=== PATIENT | female | born 1960 | race Caucasian/White ===

== ENCOUNTER 2018-04-05 16:20 | Inpatient (IN) | payer OTHER ==
[2018-04-05] MEDS ORDERED: AMPICILLIN/SULBACTAM 3 GM in NS 100 ML IV ONE (16:55)
--- NOTE | 2018-04-05 17:03 | EDPHY ---
H & P Stated Complaint: right 2nd digit cat bite on wednesday, seen at pcp yesterday, started abx Time Seen by Provider: 04/05/18 16:32 HPI/ROS: This patient has right index finger infection from a cat bite sustained on Wednesday, at 48 hr prior to arrival when she tried to free her cats foot was caught in a dog door. Her Cat got scared and bit the patient in the finger. She developed redness yesterday and was seen by her primary care physician who prescribed Augmentin antibiotic. However the patient did not get the antibiotic filled until today and did take the 1st dose until noon today. Due to significant worsening in the swelling with onset of purulent discharge and pain to 5/10 intensity with circumferential swelling the patient came in for further evaluation. A friend of hers drove her here by private vehicle. ROS: She reports some subjective low-grade fevers. No other constitutional symptoms except flu-like symptoms she describes as diffuse myalgias HEENT: No complaints Pulmonary: No complaints Cardiovascular: No complaints Neuro: She reports paresthesias to the affected finger that started today. Integumentary: No other injuries or complaints Musculoskeletal: She denies bony pain. She has difficulty straightening the affected finger due to pain. She reports that the pain for the finger radiates up her arm to her elbow region. GI: Last meal was lunch at noon. No nausea or vomiting. Source: Patient Exam Limitations: No limitations - Personal History Current Tetanus Diphtheria and Acellular Pertussis (TDAP): Yes Tetanus Vaccine Date: 04/04/18 - Medical/Surgical History Other PMH: basal cell ca removal on face, chronic migraines, chronic mold colonization/infection - Family History Significant Family History: No pertinent family hx - Social History Smoking Status: Never smoked Alcohol Use: Occasionally Drug Use: None - Physical Exam Exam: Physical Exam Vital signs are normal. General: Pleasant mildly obese 57-year-old female No acute distress Eyes: Pupils equal and react to light. Extraocular motions are intact. Lungs: No respiratory distress. Cardiac: Brisk capillary refill is intact throughout in the affected extremity. Musculoskeletal: Normal except for right index finger Right index finger: Patient has fusiform swelling of the index finger is held in partial flexion. There is erythema circumferentially to the finger that extends to the palmar aspect of the 2nd metacarpophalangeal joint. She has multiple puncture wounds are draining clear and purulent fluid. There is slight dusky appearance to the skin on the radial aspect overlying the PIP joint. Patient has increased pain with passive extension and tenderness on the palmar aspect of the finger to the metacarpophalangeal joint. Skin: Skin findings in finger as detailed above. No proximal streaking noted. Neuro: Alert and oriented x3 with no sensorimotor deficits. Constitutional: Initial Vital Signs Temperature (C) 37.3 C 04/05/18 16:28 Heart Rate 90 04/05/18 16:28 Respiratory Rate 18 04/05/18 16:28 Blood Pressure 155/100 H 04/05/18 16:28 O2 Sat (%) 95 04/05/18 16:28 O2 Delivery Mode Room Air Allergies/Adverse Reactions: acetaminophen [From Tylenol] Allergy (Verified 04/05/18 16:37) ciprofloxacin [From Cipro] Allergy (Verified 04/05/18 16:43) divalproex sodium [From Depakote] Allergy (Verified 04/05/18 16:43) ibuprofen Allergy (Verified 04/05/18 16:43) ofloxacin [From Floxin] Allergy (Verified 04/05/18 16:37) paraben Allergy (Verified 04/05/18 16:37) topiramate [From Topamax] Allergy (Verified 04/05/18 16:43) tyramine Allergy (Uncoded 04/05/18 16:37) Home Medications: Medication Instructions Recorded Augmentin 875 MG TAB (*) 04/05/18 Multiple Supplements 04/05/18 Nystatin 04/05/18 Sporanox 04/05/18 Medical Decision Making - Diagnostics Imaging Results: Imaging Impressions Finger X-Ray 04/05/18 16:54 Impression: 1. Moderate soft tissue swelling right second digit especially around the PIP joint without underlying osseous abnormality or foreign body. Three-view finger x-ray: Soft tissue swelling without bony abnormality by my interpretation ED Course/Re-evaluation: IV, I obtained wound culture from draining areas of the finger. Unasyn antibiotic IV Labs pending. Patient is placed in a wound dressing by our tech and nurse. The fingers elevated. Discussion: Patient with significant cellulitis complicating cat bite to finger concerning for potential early tenosynovitis. Patient without evidence of sepsis. While she has some paresthesias, still neurovascularly intact in the affected digit. Given the severity of her clinical findings she warrants admission for IV antibiotics and hand consult I spoke with Dr. Adriana Mary-hand surgeon on-call who recommends admission to the hospitalist with him as a consult. He would like to see how the finger responds to IV antibiotics prior to proceeding to surgery. I spoke with Dr. Ishmael López, hospitalist who accepts this patient for admission to [facility]-med surg Explained the patient that I do not want to perform a digital block at this time as a feel it is important to monitor her neurovascular status since Dr. Mary wants to 1st evaluate her response to IV antibiotics rather than proceeding directly to surgery. The patient declines any other analgesics this time concerned about potential side effects. - Data Points Laboratory Results: Laboratory Results 04/05/18 17:00 04/05/18 17:00 04/05/18 04/05/18 17:00 17:00 WBC 10.22 10^3/uL H 10^3/uL (3.80-9.50) RBC 5.10 10^6/uL 10^6/uL (4.18-5.33) Hgb 15.8 g/dL g/dL (12.6-16.3) Hct 46.8 % % (38.0-47.0) MCV 91.8 fL fL (81.5-99.8) MCH 31.0 pg pg (27.9-34.1) MCHC 33.8 g/dL g/dL (32.4-36.7) RDW 13.7 % % (11.5-15.2) Plt Count 165 10^3/uL 10^3/uL (150-400) MPV 11.5 fL fL (8.7-11.7) Neut % (Auto) 79.5 % H % (39.3-74.2) Lymph % (Auto) 11.0 % L % (15.0-45.0) [place] % (Auto) 8.4 % % (4.5-13.0) Eos % (Auto) 0.4 % L % (0.6-7.6) Baso % (Auto) 0.3 % % (0.3-1.7) Nucleat RBC Rel Count 0.0 % % (0.0-0.2) Absolute Neuts (auto) 8.13 10^3/uL H 10^3/uL (1.70-6.50) Absolute Lymphs (auto) 1.12 10^3/uL 10^3/uL (1.00-3.00) Absolute Monos (auto) 0.86 10^3/uL H 10^3/uL (0.30-0.80) Absolute Eos (auto) 0.04 10^3/uL 10^3/uL (0.03-0.40) Absolute Basos (auto) 0.03 10^3/uL 10^3/uL (0.02-0.10) Absolute Nucleated RBC 0.00 10^3/uL 10^3/uL (0-0.01) Immature Gran % 0.4 % % (0.0-1.1) Immature Gran # 0.04 10^3/uL 10^3/uL (0.00-0.10) Sodium 137 mEq/L mEq/L (135-145) Potassium 4.5 mEq/L mEq/L (3.5-5.2) Chloride 103 mEq/L mEq/L (97-110) Carbon Dioxide 21 mEq/l L mEq/l (22-31) Anion Gap 13 mEq/L mEq/L (8-16) BUN 14 mg/dL mg/dL (7-23) Creatinine 0.5 mg/dL L mg/dL (0.6-1.0) Estimated GFR > 60 Glucose 142 mg/dL H mg/dL (70-100) Calcium 9.4 mg/dL mg/dL (8.5-10.4) Medications Given: Discontinued Medications Ampicillin Sodium/Sulbactam Sodium (Unasyn) 3 gm IV EDNOW ONE PRN Reason: Protocol Stop: 04/05/18 17:15 Last Admin: 04/05/18 17:17 Dose: 3 gm Ampicillin Sodium/Sulbactam (Sodium 3 gm/ Sodium Chloride) 100 mls @ 200 mls/ hr IV EDNOW ONE PRN Reason: Protocol Stop: 04/05/18 17:24 Last Admin: 04/05/18 17:36 Dose: Not Given Departure - Departure Disposition: Home, Routine, Self-Care Clinical Impression: Cat bite of index finger Qualifiers: Encounter type: initial encounter Qualified Code(s): S61.258A - Open bite of other finger without damage to nail, initial encounter Cellulitis Qualifiers: Site of cellulitis: extremity Site of cellulitis of extremity: finger Laterality: right Qualified Code(s): L03.011 - Cellulitis of right finger Condition: Good Referrals: NONE *PRIMARY CARE P,. [Primary Care Provider] - As per Instructions Adriana Mary MD [Medical Doctor] - As per Instructions
[2018-04-05] MEDS ORDERED: AMPICILLIN/SULBACTAM 3 GM VIAL ONE (17:08)
[2018-04-05 17:09] LABS: PLATELET COUNT 165 10^3/uL (150-400)
[2018-04-05] MEDS ORDERED: AMPICILLIN/SULBACTAM 3 GM VIAL IV ONE (17:14)
[2018-04-05] MEDS ORDERED: oxyCODONE IR 5 MG TAB PO PRN (19:29)
[2018-04-05] MEDS ORDERED: NS 1,000 ML IV ONE (19:29)
[2018-04-05] MEDS ORDERED: PROMETHAZINE HCL 25 MG/ML INJ IVP PRN (19:29)
[2018-04-05] MEDS ORDERED: ONDANSETRON DISINTEGRATING 4 MG TAB PO PRN (19:29)
[2018-04-05] MEDS ORDERED: ONDANSETRON 4 MG/2 ML VIAL IVP PRN (19:29)
[2018-04-05] MEDS ORDERED: ACETAMINOPHEN 325 MG TAB PO PRN (19:29)
[2018-04-05] MEDS ORDERED: HYDROmorphone HCL/NS 0.5 MG/ML SYR IVP PRN (19:29)
[2018-04-05] MEDS ORDERED: LORazepam 0.5 MG TAB PO PRN (19:29)
--- NOTE | 2018-04-05 21:08 | GHP ---
[f rep st] HISTORY AND PHYSICAL DATE OF ADMISSION: 04/05/2018 CHIEF COMPLAINT: Finger pain and swelling. HISTORY OF PRESENT ILLNESS: This is a 57-year-old female with past medical history of chronic fatigu e, migraine, and "mold infection," who presents with pain and swelling in her right index finger foll owing a cat bite. The patient notes she was attempting to help her cat get out of the cat door, as blayne conteh was stuck when he bit her finger multiple times. She was seen by her primary care physician melisa y after that and given a prescription for amoxicillin. However, she did not fill it for 48 hours and only took the first dose today. She notes that over the last 48 hours the finger has become dark in places. The pain has increased, and there has been increasing purulent discharge. The redness and swelling have begun to extend into her hand. She denies fevers, though she states she has had some s ensation of being cold today. She has limited mobility in her affected finger. She does continue to have sensation, though has had some paresthesias there as well. PAST MEDICAL HISTORY: 1. Includes chronic fatigue. 2. Migraine. 3. "Mold infection" for which patient is on itraconazole and nystatin chronically. PAST SURGICAL HISTORY: Denies. FAMILY HISTORY: Noncontributory and reviewed. SOCIAL HISTORY: She is a nonsmoker. Drinks rarely. Denies drug use. REVIEW OF SYSTEMS: 10-point review of systems obtained and negative except as per HPI. MEDICATIONS: Include itraconazole, nystatin, and cholestyramine that she uses to treat her migraines . ALLERGIES: Multiple. Please see list for full details. PHYSICAL EXAMINATION: VITAL SIGNS: Blood pressure 145/91, heart rate 93, respiratory rate 16, O2 sa turations 93% on room air, and temperature is 37.3. GENERAL APPEARANCE: This is a slightly dishevel ed female. She is awake and alert. She is in no acute distress. EYES: Anicteric. HENT: Oropharynx clear. CARDIOVASCULAR: Regular rate and rhythm. No murmurs, rubs or gallops. PULMONA RY: Clear to auscultation bilaterally to anterior exam. ABDOMEN: Soft, nontender. Positive bowel sounds. EXTREMITIES: No clubbing, cyanosis, or edema. Her right 2nd digit is noted to be erythemat ous with areas of duskiness over the PIP joint. Range of motion is decreased. Erythema extends prox imally to the wrist. SKIN: Warm, dry, well perfused, other than as per above. NEURO/PSYCHIATRIC: Oriented and appropriate. CLINICAL DATA: A white blood cell count of 10.2. Chemistry relatively unremarkable, otherwise. Glu cose is 142. Finger x-ray personally reviewed and interpreted. There is no foreign body noted. There is moderate soft tissue swelling around the PIP joint. ASSESSMENT AND PLAN: This is a 57-year-old female presenting with a finger cellulitis related to a c at bite. 1. Cellulitis, again in the setting of cat bite. It is concerning in that there is some duskiness t o the skin, concerning for some tissue necrosis. She has been started on Unasyn, which will be niles nued. Hand has been consulted, specifically Dr. Mary. Unclear at this point whether or not she will require some surgical debridement. We will continue Unasyn for the time being, as well as elevation . The patient states she has had bad reactions to the majority of pain medications and declines thos e at this time. 2. Hyperglycemia in the setting of infection, likely stress response. We will recheck a glucose in the morning, however, to be sure. If this continues to be elevated would obtain a hemoglobin A1c, as she does have obesity and could be at risk for diabetes. 3. Chronic fatigue/migraine/chronic mold infection. She is followed by Dr. Paige who prescribes her i traconazole and nystatin for her chronic mold infection and cholestyramine for her chronic migraines. We will defer any changes in these medications to the outpatient setting. DISPOSITION: Observation status. I expect she will need less than a 48-hour stay for evaluation and management of above. Patient is new to my care. Old records reviewed, summarized as per HPI and past medical history. Ca re plan reviewed with emergency department physician including plans for orthopedic consultation. /[id number]/MODL
[2018-04-06] MEDS: AMPICILLIN/SULBACTAM 3 GM in NS 100 ML IV SCH ×5 (00:26→23:22)
[2018-04-06 05:25] LABS: PLATELET COUNT 159 10^3/uL (150-400)
[2018-04-06] MEDS ORDERED: MAGNESIUM CITRATE PO PRN (13:50)
[2018-04-06] MEDS ORDERED: NS 1,000 ML IV SCH (14:00)
[2018-04-06] MEDS: NYSTATIN 500000 UNIT PO SCH (15:27)
[2018-04-06] MEDS: ITRACONAZOLE 100 MG CAP PO SCH (15:28)
--- NOTE | 2018-04-06 15:31 | HOSPPROG ---
Hospitalist Progress Note Assessment/Plan: #Cellulitis/abscess of right hand #chronic Fatigue #?chronic mold infection #chronic migraine Plan: -IV abx -Ortho consult, ?debridement -pain mgm -home meds, will restart -keep NPO until ortho reccs Subjective: waiting for ortho consult. afebrile. no cp or sob. no n/v Objective: Vital Signs Temp Pulse Resp BP Pulse Ox 36.9 C 74 18 131/90 H 93 04/06/18 07:55 04/06/18 07:55 04/06/18 07:55 04/06/18 07:55 04/06/18 07:55 Laboratory Results 04/06/18 05:00 04/06/18 05:00 04/05/18 04/06/18 04/07/18 05:59 05:59 05:59 Intake Total 10 Balance 10 - Physical Exam Constitutional: no apparent distress Eyes: PERRL, EOMI Ears, Nose, Mouth, Throat: moist mucous membranes, hearing normal Cardiovascular: regular rate and rhythym Respiratory: no respiratory distress Gastrointestinal: normoactive bowel sounds, soft, non-tender abdomen Genitourinary: no bladder fullness Skin: warm, other (swelling, erythema involving first digit) Neurologic: AAOx3 Psychiatric: interacting appropriately, not anxious, not encephalopathic Lymph, Heme, Immunologic: No petechiae ICD10 Worksheet Patient Problems: Problems Problem Status Onset Cat bite of index finger Acute Cellulitis Acute
[2018-04-06] MEDS: MUPIROCIN EACHNARE SCH ×2 (16:00→21:03)
[2018-04-06] MEDS: [UNRECOGNIZED DRUG - OTHER] EACHNARE SCH ×2 (16:00→21:03)
[2018-04-06] MEDS: ITRACONAZOLE EACHNARE SCH ×2 (16:00→21:03)
--- NOTE | 2018-04-06 17:42 | ASMTCMCOM ---
CM Note CM Note Notes: Pt admitted w/infected finger from cat bite. She will go to surg today w/Dr Mary. DC needs not clear yet. CM will follow to se if she will need IV ABX's at dc or anything else. Date Signed: 04/06/2018 05:41 PM Electronically Signed By:Sayda Zambrano RN
[2018-04-06] MEDS ORDERED: BUPIVACAINE 0.5% 30 ML SDV ONE (18:43)
--- NOTE | 2018-04-06 18:50 | PDANEPAE ---
ANE History of Present Illness i&d finger for cat bite ANE Past Medical History - Pulmonary History Hx Oxygen in Use at Home: No Hx Sleep Apnea: No Sleep Apnea Screening Result - Last Documented: Positive - Endocrine History Hx Diabetes: No - Neurological & Psychiatric Hx Neurological / Psychiatric History Comment: migraine [place] - Chronic Pain History Chronic Pain: Yes ANE Review of Systems Review of Systems: - Exercise capacity Exercise capacity: >=4 METS ANE Patient History - Allergies Allergies/Adverse Reactions: acetaminophen [From Tylenol] Allergy (Verified 04/05/18 20:35) ARRHYTHMIA ciprofloxacin [From Cipro] Allergy (Verified 04/05/18 16:43) divalproex sodium [From Depakote] Allergy (Verified 04/05/18 16:43) ibuprofen Allergy (Verified 04/05/18 20:34) TINNITIS ofloxacin [From Floxin] Allergy (Verified 04/05/18 16:37) paraben Allergy (Verified 04/05/18 16:37) topiramate [From Topamax] Allergy (Verified 04/05/18 16:43) tyramine Allergy (Uncoded 04/05/18 16:37) - Home Medications Home medications: home medication list seen and reviewed Home Medications: Cholestryramine 4 g PO BID@10,12 04/05/18 [Last Taken 04/05/18] Itraconazole Nasal [place] 1 spray EACHNARE TID 04/05/18 [Last Taken 04/05/18] Magnesium Citrate 510 - 680 mg PO PRN PRN 04/05/18 [Last Taken 04/05/18] Nystatin 1,000,000 unit PO BID 04/05/18 [Last Taken 04/05/18] Amox Tr/K Clav (Augmentin) [Augmentin 500/125 MG TAB (*)] 500 mg PO Q8 04/05/18 [Last Taken 04/05/18] Herbals/Supplements -Info Only 1 unit PO DAILY 04/05/18 [Last Taken Unknown] Itraconazole [Sporanox 100 mg (*)] 200 mg PO BID 04/05/18 [Last Taken 04/05/18] - NPO status NPO Status: no food or drink >8 hours NPO Since - Liquids (Date): 04/06/18 NPO Since - Liquids (Time): 00:00 NPO Since - Solids (Date): 04/06/18 NPO Since - Solids (Time): 00:00 - Anes Hx Anes Hx: no prior problems - Smoking Hx Smoking Status: Never smoked - Alcohol Use Alcohol Use: Occasionally ANE Labs/Vital Signs - Labs Result Diagrams: 04/06/18 05:00 04/06/18 05:00 - Vital Signs Blood Pressure: 135/85 Heart Rate: 82 Respiratory Rate: 16 O2 Sat (%): 92 Height: 167.64 cm Weight: 83.915 kg ANE Physical Exam - Airway Neck exam: FROM Mallampati Score: Class 2 Mouth exam: normal dental/mouth exam - Pulmonary Pulmonary: no respiratory distress - Cardiovascular Cardiovascular: regular rate and rhythym - ASA Status ASA Status: II ANE Anesthesia Plan Anesthesia Plan: GA w LMA
[2018-04-06] MEDS ORDERED: fentaNYL 100 MCG/2 ML INJ ONE (18:56)
[2018-04-06] MEDS ORDERED: PROPOFOL/EMULSION 500 MG/50 ML BOTTLE IV ONE (18:57)
[2018-04-06] MEDS ORDERED: POLYMYXIN B SULFATE 500,000 UNIT/10 ML SYR IRR ONE (19:18)
[2018-04-06] MEDS ORDERED: GENTAMICIN SULFATE 80 MG/2 ML VIAL ONE (19:18)
[2018-04-06] MEDS ORDERED: BACITRACIN 50,000 UNITS/10 ML SYR IRR ONE (19:19)
[2018-04-06] MEDS ORDERED: DEXAMETHASONE 4 MG/ML VIAL ONE (19:58)
[2018-04-06] MEDS ORDERED: PETROLAT,WHT/MIN OIL/SOD CHL 3.5 GM OPHT.OINT ONE (19:58)
[2018-04-06] MEDS ORDERED: ONDANSETRON 4 MG/2 ML VIAL ONE (19:58)
--- NOTE | 2018-04-06 20:02 | POSTOPPROG ---
Post Op Note Date of Operation: 04/06/18 Surgeon: Adriana Mary Anesthesiologist: janell Anesthesia: LMA Pre-op Diagnosis: r if cat bite Procedure: i&d r if with drain placement Inf/Abcess present in the surg proc area at time of surgery?: Yes Depth: Deep Incisional (Fascial) EBL: 50-100
[2018-04-06] MEDS ORDERED: NALOXONE HCL 0.4 MG/ML INJ IVP PRN (20:23)
[2018-04-06] MEDS ORDERED: DEXAMETHASONE 4 MG/ML VIAL IVP PRN (20:23)
[2018-04-06] MEDS ORDERED: LR 500 ML IV PRN (20:23)
[2018-04-06] MEDS ORDERED: ALBUTEROL 3 ML DEYVIAL IH PRN (20:23)
[2018-04-06] MEDS ORDERED: MEPERIDINE 25 MG/0.5 ML AMP IVP PRN (20:23)
[2018-04-06] MEDS ORDERED: METOCLOPRAMIDE 10 MG/2 ML VIAL IVP PRN (20:23)
[2018-04-06] MEDS ORDERED: PROMETHAZINE HCL 25 MG/ML INJ IVP PRN (20:23)
[2018-04-06] MEDS ORDERED: fentaNYL 100 MCG/2 ML INJ IVP PRN (20:23)
[2018-04-06] MEDS ORDERED: oxyCODONE IR 5 MG TAB PO PRN (20:23)
[2018-04-06] MEDS ORDERED: LABETALOL HCL 5 MG/ML 20 ML MDV IVP PRN (20:23)
[2018-04-06] MEDS ORDERED: ONDANSETRON 4 MG/2 ML VIAL IVP PRN (20:23)
--- NOTE | 2018-04-06 20:25 | POSTANESTH ---
Post Anesthetic Evaluation Cardiovascular Status: Normal, Stable Respiratory Status: Normal, Stable Level of Consciousness/Mental Status: Can Participate in Eval Pain Control: Adequate, Prn Tx Ordered Nausea/Vomiting Control: Adequate, Prn Tx Ordered Complications Possibly Related to Anesthesia: None Noted
--- NOTE | 2018-04-06 20:32 | SOAPPROG ---
SOAP Progress Note Assessment/Plan: Assessment: Plan: Subjective: her brother states she has lyme disease and is untreated at this time. Objective: Vital Signs Temp Pulse Resp BP Pulse Ox 37.3 C 82 12 129/70 H 95 04/06/18 20:16 04/06/18 18:50 04/06/18 20:30 04/06/18 20:26 04/06/18 20:30 Laboratory Results 04/06/18 05:00 04/06/18 05:00 04/05/18 04/06/18 04/07/18 05:59 05:59 05:59 Intake Total 10 1473 Output Total 15 Balance 10 1458 ICD10 Worksheet Patient Problems: Problems Problem Status Onset Cat bite of index finger Acute Cellulitis Acute
--- NOTE | 2018-04-06 21:15 | GOP ---
[f rep st] OPERATIVE REPORT DATE OF OPERATION: SURGEON: Adriana Mary MD ANESTHESIA: By LMA. PREOPERATIVE DIAGNOSIS: Right index finger cat bite. POSTOPERATIVE DIAGNOSIS: Right index finger cat bite. PROCEDURE PERFORMED: Irrigation and debridement of right index finger with drain placement. FINDINGS: INDICATIONS: This is a 57-year-old female, who was bit multiple times by a cat on Wednesday. Did not s tart any antibiotics until Wednesday when she had a great deal of pain. She was admitted on Wednesday fo r IV antibiotics. I was asked to see the patient for further evaluation. She was brought to the ope rating room as soon as time was available. DESCRIPTION OF PROCEDURE: Patient brought to the operating room, after the right index finger had be en identified as the correct finger by the patient and her physician. Once in the operating room, yeni e was placed under general anesthesia using an LMA. A tourniquet was placed around the upper portion of the right arm and the right upper extremity sterilely prepped and draped in the usual fashion usi ng GSI solution. Once prepped and draped, the limb was elevated for 2 minutes. Tourniquet was then inflated to 250 mmHg. The loose areas of skin were able to be debrided. She was noted to have some gross purulence over the area of the DIP joint and in the subcutaneous tissue along the middle phalan x. She had multiple puncture wounds explored. She also had some purulence at the ulnar wound at the midportion of her distal phalanx that also had some tracking sinus going proximally. The elevated s kin associated with the pockets of pus were debrided off the skin. The incision was made along the d orsal portion of the DIP joint, through the subcutaneous tissue leaving the extensor tendon intact an d extending to the ulnar border following the sinus. Blunt dissection was done through the sinus and the wound was thoroughly irrigated with 500 mL of antibiotic fluid using a bulb syringe. The other deep wound that was found on the ulnar border of the digit in the midportion of the distal phalanx th at had a separate tracking sinus was also irrigated with 500 mL of antibiotic fluid. Once completed, a [place] drain was placed in each sinus. The wound was then dressed with Xeroform and 4x4s. Tourn iquet was released at 22 minutes. 10 cc of plain Marcaine was injected on either side of the metacar pal of the index finger in order to keep the finger numb. She then had tube gauze placed around the finger. She was woken up, extubated. The tourniquet was removed from the upper portion of the arm. She was transferred onto a stretcher, and sent to recovery room in good condition. TOURNIQUET TIME: 22 minutes. /[id number]/MODL
--- NOTE | 2018-04-06 21:15 | GCON ---
[f rep st] CONSULTATION DATE OF CONSULTATION: 04/06/2018 CURRENT COMPLAINT: Right index finger pain. HISTORY OF PRESENT ILLNESS: Ms. Robin is a 57-year-old female, who was bitten by her cat several times on Wednesday was seen by her primary care physician on Wednesday and was prescribed antibiotics. Harrison conteh did not pick them up until Wednesday at which point she had a large infection going with a significan t increase in pain. She was admitted to the hospital for IV antibiotics. I was asked to see the pat khanh for further evaluation. PHYSICAL EXAMINATION: The patient is grossly neurologically intact to the radial side of the digit, but has decreased sensation on the ulnar border of her digit, which she attributes to the cat bite it self. She has multiple loculations of purulence and multiple puncture wounds, particularly on the ul [place] side of her finger. She has pain with any type of motion through the DIP joint, but less so to t he PIP and MCP joints. She is nontender along the flexor tendon sheath and/or palm, and she has no p ain to passive stretch through the flexor tendon sheath. There are no holes around the area of the f lexor tendon, but there are holes dorsally and ulnarly. ASSESSMENT AND PLAN: Patient is status post right index finger cat bite. She is to be taken to the operating room today as soon as time is available for formal irrigation and debridement of the finger . /[id number]/MODL
[2018-04-06] MEDS: CHOLESTYRAMINE 4 GM PO SCH (23:22)
[2018-04-07] MEDS: AMPICILLIN/SULBACTAM 3 GM in NS 100 ML IV SCH ×3 (04:21→18:09)
[2018-04-07] MEDS: CHOLESTYRAMINE 4 GM PO SCH ×3 (05:10→12:21)
[2018-04-07] MEDS: NYSTATIN 500000 UNIT PO SCH ×2 (08:50→16:51)
[2018-04-07] MEDS: ITRACONAZOLE 100 MG CAP PO SCH ×2 (08:51→16:51)
[2018-04-07] MEDS: [UNRECOGNIZED DRUG - OTHER] EACHNARE SCH ×3 (08:51→21:20)
[2018-04-07] MEDS: MUPIROCIN EACHNARE SCH ×3 (08:51→21:20)
[2018-04-07] MEDS: ITRACONAZOLE EACHNARE SCH ×3 (08:51→21:20)
--- NOTE | 2018-04-07 09:26 | PDMN ---
Medical Necessity Medical necessity: Patient meets inpatient criteria per physician note and MCG M -70 Cellulitis (cellulitis/abscess of R hand w/no improvement after IV antibiotics, to surgery for I&D of infected finger s/p cat bites; LOS > 2 midnights for ongoing IV antibiotics.)
--- NOTE | 2018-04-07 10:44 | SOAPPROG ---
SOAP Progress Note Assessment/Plan: Assessment: Plan: Subjective: Doing well, pain much improved. Objective: Vital Signs Temp Pulse Resp BP Pulse Ox 36.7 C 70 16 113/60 92 04/07/18 08:43 04/07/18 08:43 04/07/18 08:43 04/07/18 08:43 04/07/18 08:43 Microbiology 04/06/18 19:29 Gram Stain - Final Finger - Eswab Laboratory Results 04/06/18 05:00 04/06/18 05:00 04/06/18 04/07/18 04/08/18 05:59 05:59 05:59 Intake Total 10 1873 Output Total 15 Balance 10 1858 erythema and swelling improved, ROM limited to pain, NVI distally, incison healing well - Time Spent With Patient Time Spent With Patient: 10 - Pending Discharge Pending Discharge Within 24 Hours: No Pending Discharge Within 48 Hours: No ICD10 Worksheet Patient Problems: Problems Problem Status Onset Cat bite of index finger Acute Cellulitis Acute
--- NOTE | 2018-04-07 15:43 | HOSPPROG ---
Hospitalist Progress Note Assessment/Plan: #Cellulitis/abscess of right hand -s/p ID -cont IV abx #chronic Fatigue #?chronic mold infection #chronic migraine Plan: -IV abx -Ortho reccs -pain mgmt -home meds -repeat labs in a.m. Subjective: no cp or sob. no n/v. afebrile. s/p I&D Objective: Vital Signs Temp Pulse Resp BP Pulse Ox 37.2 C 70 16 119/74 90 L 04/07/18 11:19 04/07/18 11:19 04/07/18 11:19 04/07/18 11:19 04/07/18 11:19 Microbiology 04/06/18 19:29 Gram Stain - Final Finger - Eswab Laboratory Results 04/06/18 05:00 04/06/18 05:00 04/06/18 04/07/18 04/08/18 05:59 05:59 05:59 Intake Total 10 1873 Output Total 15 Balance 10 1858 - Physical Exam Constitutional: no apparent distress Eyes: PERRL, EOMI Ears, Nose, Mouth, Throat: moist mucous membranes, hearing normal Cardiovascular: regular rate and rhythym, No edema Respiratory: no respiratory distress, no rales or rhonchi, clear to auscultation Gastrointestinal: normoactive bowel sounds, soft, non-tender abdomen Skin: warm Musculoskeletal: No generalized weakness Neurologic: AAOx3 Psychiatric: interacting appropriately, not anxious, not encephalopathic Lymph, Heme, Immunologic: No petechiae ICD10 Worksheet Patient Problems: Problems Problem Status Onset Cat bite of index finger Acute Cellulitis Acute
[2018-04-07] MEDS ORDERED: oxyCODONE IR 5 MG TAB PO PRN (17:30)
[2018-04-08] MEDS: AMPICILLIN/SULBACTAM 3 GM in NS 100 ML IV SCH ×3 (00:07→13:00)
[2018-04-08 05:00] LABS: PLATELET COUNT 168 10^3/uL (150-400)
[2018-04-08] MEDS: ITRACONAZOLE 100 MG CAP PO SCH (07:30)
[2018-04-08] MEDS: NYSTATIN 500000 UNIT PO SCH (07:31)
[2018-04-08] MEDS: ITRACONAZOLE EACHNARE SCH (07:31)
[2018-04-08] MEDS: [UNRECOGNIZED DRUG - OTHER] EACHNARE SCH (07:31)
[2018-04-08] MEDS: MUPIROCIN EACHNARE SCH (07:31)
--- NOTE | 2018-04-08 09:17 | SOAPPROG ---
SOAP Progress Note Assessment/Plan: Assessment: Plan: - pt can d/c home from ortho perspective - will follow up w/ Dr. Mary in the office next week to remove dressing and sutures - please keep dressing dry 04/08/18 09:16 Subjective: Pt reports overall improvement, some itching in the finger which she thinks is the block, she is anxious to go home Objective: Vital Signs Temp Pulse Resp BP Pulse Ox 36.4 C 68 17 136/91 H 98 04/08/18 07:20 04/08/18 07:20 04/08/18 07:20 04/08/18 07:20 04/08/18 07:20 Microbiology 04/06/18 19:29 Gram Stain - Final Finger - Eswab Laboratory Results 04/08/18 04:22 04/08/18 04:22 04/07/18 04/08/18 04/09/18 05:59 05:59 05:59 Intake Total 1873 750 Output Total 15 Balance 1858 750 dressing cdi, nvi, mild swelling on dorsum of hand, no lymphangitis - Time Spent With Patient Time Spent With Patient: 15 - Pending Discharge Pending Discharge Within 24 Hours: Yes Pending Discharge Within 48 Hours: No Pending Discharge Date: 04/09/18 Pending Discharge Time: 11:00 ICD10 Worksheet Patient Problems: Problems Problem Status Onset Cat bite of index finger Acute Cellulitis Acute
--- NOTE | 2018-04-08 10:12 | PDDCSUM ---
Discharge Summary Discharge Summary: This is a 57 yo female who had a cat bite and was admitted. Dr. Mary performed I &D. She has now been cleared for discharge by Ortho. She has been treated with Unasyn. Culture grew back Pasteurella Multocida. She will be transitioned to Augmentin 875mg BID x 10 days. She has f/u with Dr. Mary in one week. Dressing should be kept dry. Sutures and dressing removal will be done at f/u. She has been given Oxy for pain mgmt. DDX: #Cellulitis/abscess of right hand -s/p ID -cont abx #chronic Fatigue #?chronic mold infection #chronic migraine Exam: VSS Afebrile nad aaox3 rrr ctab right hand with dressing in place, did not take down meds: see med rec f/u: per above total time spent on d/c is 35 minutes
--- NOTE | 2018-04-08 10:32 | ASMTCMCOM ---
CM Note CM Note Notes: Pt will DC today on oral ABX. No DC needs. Date Signed: 04/08/2018 10:31 AM Electronically Signed By:Ama Montes LCSW
[2018-04-08] MEDS: CHOLESTYRAMINE 4 GM PO SCH ×2 (11:19→11:59)
[2018-04-08 11:54] VITALS: BP 137/90
== END 2018-04-08 13:02 | disposition home or self-care (01) | DRG 603 ==
LOC: CED 16:20 → CEDHOLD 17:33 → OBSVTOIN 17:33 → F1N 19:00
PROVIDERS: ADMIT Internal Medicine; ATTEND Family Medicine
PROC: 0J9J00Z Drainage of Right Hand Subcutaneous Tissue and Fascia with Drainage Device, Open Approach (ICD-10-PCS; principal; 2018-04-06 14:30)
DX: L03.011 Cellulitis of right finger (principal); A28.0 Pasteurellosis; S61.258A Open bite of other finger without damage to nail, initial encounter; W55.01XA Bitten by cat, initial encounter; Y92.019 Unspecified place in single-family (private) house as the place of occurrence of the external cause; Y93.K9 Activity, other involving animal care; R73.9 Hyperglycemia, unspecified; R53.82 Chronic fatigue, unspecified; G43.909 Migraine, unspecified, not intractable, without status migrainosus; Z85.820 Personal history of malignant melanoma of skin; Z77.120 Contact with and (suspected) exposure to mold (toxic)
CPT/HCPCS: 73140-PO; 80048-PO; 82947-QW; 85025-PO; 86618-90; 96374; G0378; J0295; J1100; J1580; J2405; J2704; J3010

== ENCOUNTER 2018-04-11 15:45 | Emergency (ER) | payer OTHER ==
[2018-04-11 15:52] VITALS: BP 130/94
--- NOTE | 2018-04-11 15:58 | EDPHY ---
H & P Stated Complaint: cat bite wed/saw dr mary for infection/not taking prescribed oxycodone/pain Time Seen by Provider: 04/11/18 15:56 HPI/ROS: HPI: This is a 57-year-old female who presents with Chief Complaint: cat bite wed/saw dr mary for infection/not taking prescribed oxycodone/pain Location: Right pointer finger Quality: Cat bite Duration: Since 04/03/2018 Signs and Symptoms: No bleeding, no radiation, no numbness, no weakness, no tingling, no incontinence, no decreased range of motion, no swelling, no pain, no fever Timing: Acute Severity: Mild Context: Patient is right-hand dominant, status post cat bite by her own fee lying while he was wedged in her the cat door on 04/03/2018. Primary care provider gave her amoxicillin but she did not fill the prescription for 48 hr. She was seen in this emergency room on 04/05/2018 and admitted to the hospital with IV Unasyn and then on 04/06/2018 Dr. Mary to took her to the OR for debridement and placed a Juan drain. Patient reports that her swelling has substantially decreased. Her concern today is that she is feeling pain in her low right lateral neck as well as her shoulder area going down all the way to her right wrist. It is worse at night when she props her arm up on a pillow. She was post to follow up Dr. Mary this week for dressing change and 1st postop follow-up appointment. She denies any fever. She does report improved range of motion and good capillary refill at the distal portion of her finger tip. Tetanus booster given on 04/04/2018. Patient was given a prescription for oxycodone at discharge but has not filled it as she does not like taking medications. She reports that she has means at home to decrease her pain without using medications. She is still taking Augmentin for the next 10 days as prescribed. Modifying Factors: Above Comment: ROS: see HPI Constitutional: No fever, no chills, no weight loss Eyes: No blurred vision Respiratory: No shortness of breath, no cough Cardiovascular: No chest pain Gastrointestinal: No nausea, no vomiting no diarrhea Genitourinary: No dysuria Extremities: No myalgias Neurologic: No weakness, no numbness Skin: No rashes Hematologic: No bruising, no bleeding MEDICAL/SURGICAL/SOCIAL HISTORY: Medical/surgical history: Prebasal cell ca removal on face, chronic migraines, chronic mold colonization/infection, chronic fatigue Social history: Right pointer finger surgical debridement CONSTITUTIONAL: awake and alert, no obvious distress HEENT: Atraumatic and normocephalic. NECK: supple, no midline tenderness, flexion 45 degrees, extension 45 degrees, right and left lateral flexion 45 degrees. No meningismus. Cardiovascular: Normal S1/S2, regular rate, regular rhythm, without murmur rub or gallop. PULMONARY/CHEST: Symmetrical and nontender. no crepitus. Clear to auscultation bilaterally. Good air movement. No accessory muscle usage. ABDOMEN: Soft, nondistended, nontender, no ecchymosis. PELVIC: no pain with rocking; bilateral hips flexion 125 degrees, extension 30 degrees, with no pain internal rotation and no pain external rotation. BACK: No midline tenderness, no paraspinous spasm, deep tendon reflexes 2/2, no pain with straight leg raise, No foot drop. Achilles reflexes are equal bilaterally. Able to walk on heels and toes without difficulty. EXTREMITIES: 2/2 pulses, strength 5/5, right pointer finger dressing removed; shows [place] drain in place; good capillary refill and good light touch sensation throughout. No signs of necrosis. No fluctuance. DIP/PIP/MCP flexion /extension intact with good light touch sensation. no deformities, no clubbing, no cyanosis or edema. NEUROLOGICAL: no focal neuro deficits. GCS 15. Light touch sensation intact. SKIN: Warm and dry, no erythema. no rash. Good capillary refill. Source: Patient, Old records Exam Limitations: No limitations - Personal History Current Tetanus/Diphtheria Vaccine: Yes Tetanus Vaccine Date: 04/04/18 - Medical/Surgical History Hx Asthma: No Hx Chronic Respiratory Disease: No Hx Diabetes: No Hx Cardiac Disease: No Hx Renal Disease: No Hx Cirrhosis: No Hx Alcoholism: No Hx HIV/AIDS: No Hx Splenectomy or Spleen Trauma: No Other PMH: basal cell ca removal on face, chronic migraines, chronic mold colonization/infection, chronic fatigue - Social History Smoking Status: Never smoked Constitutional: Initial Vital Signs Temperature (C) 36.4 C 04/11/18 15:49 Heart Rate 93 04/11/18 15:49 Respiratory Rate 16 04/11/18 15:49 Blood Pressure 130/94 H 04/11/18 15:49 O2 Sat (%) 94 04/11/18 15:49 O2 Delivery Mode Room Air Allergies/Adverse Reactions: acetaminophen [From Tylenol] Allergy (Verified 04/11/18 15:49) ARRHYTHMIA ciprofloxacin [From Cipro] Allergy (Verified 04/11/18 15:49) divalproex sodium [From Depakote] Allergy (Verified 04/11/18 15:49) ibuprofen Allergy (Verified 04/11/18 15:49) TINNITIS ofloxacin [From Floxin] Allergy (Verified 04/11/18 15:49) paraben Allergy (Verified 04/11/18 15:49) topiramate [From Topamax] Allergy (Verified 04/11/18 15:49) tyramine Allergy (Uncoded 04/05/18 16:37) Home Medications: Medication Instructions Recorded Cholestryramine 4 g PO BID@10,12 04/05/18 Itraconazole Nasal [place] 1 spray EACHNARE TID 04/05/18 Magnesium Citrate 510 - 680 mg PO PRN PRN 04/05/18 Nystatin 1,000,000 unit PO BID 04/05/18 Herbals/Supplements -Info Only 1 unit PO DAILY 04/05/18 Itraconazole [Sporanox 100 mg (*)] 200 mg PO BID 04/05/18 Amoxicillin/Clavulanate Pot 875 mg PO BID #20 tab 04/08/18 [Augmentin 875 MG TAB (*)] oxyCODONE IR [Oxycodone Ir (*)] 5 mg PO Q4HRS PRN #30 tab 04/08/18 Medical Decision Making ED Course/Re-evaluation: Tetanus booster up-to-date Dressing removed; patient reports that there is substantial improvement in the infection with good range of motion. Juan drain still in place. Dressed with Xeroform and tube gauze. Advised to continue Augmentin. Patient will call Dr. Mary this week for her follow-up appointment. No signs of neurovascular compromise/tenting of skin/compartment syndrome/ extremities and joints examined above and below area of concern and are neurovascularly intact. Please note that I offered patient a prescription for pain medication and she politely declined. This patient was seen under the supervision of my secondary supervising physician. I evaluated care for this patient independently. Differential Diagnosis: Differential diagnosis includes but is not limited to cervical degenerative disc disease, cervical radiculopathy, carpal tunnel syndrome, nerve injury, tendon injury, cellulitis. Departure - Departure Disposition: Home, Routine, Self-Care Clinical Impression: Cat bite of finger Qualifiers: Encounter type: subsequent encounter Qualified Code(s): S61.259D - Open bite of unspecified finger without damage to nail, subsequent encounter; W55.01XD - Bitten by cat, subsequent encounter; W55.01XD - Bitten by cat, subsequent encounter Condition: Good Instructions: Animal Bite (ED) Additional Instructions: Keep the dressing dry and in place until seen this week by Dr. Mary for follow- up. Return to the ER immediately if you experience redness, red streaks, have fevers /chills, flu like symptoms, limited range of motion, or any other symptoms that concern you. Referrals: Adriana Mary MD [Medical Doctor] - As per Instructions
== END 2018-04-11 16:25 | disposition home or self-care (01) ==
DX: S61.250D Open bite of right index finger without damage to nail, subsequent encounter (principal); W55.01XD Bitten by cat, subsequent encounter

== ENCOUNTER → 2018-06-09 | Day surgery (SDC) | payer OTHER ==
--- NOTE | 2018-06-08 18:37 | GHP ---
[f rep st] PREOP HISTORY AND PHYSICAL DATE OF ADMISSION: 06/09/2018 CURRENT COMPLAINT: Right index finger stiffness. HISTORY OF PRESENT ILLNESS: The patient is a 57-year-old female who previously she had irrigation an d debridement for a cat bite injury. She has subsequently developed fibrosis into the finger despite physical therapy. She would like a manipulation in order to decrease the time of recovery. ALLERGIES: Include anesthetics, anti-inflammatories, and Tylenol. CURRENT MEDICATIONS: Include cholestyramine, itraconazole, Nystatin. PAST MEDICAL HISTORY: Medical problems include arthritis, reflux, migraines, osteopenia, and sleep a pnea. PAST SURGICAL HISTORY: Prior surgeries include x1 as well as a right index finger I and D . SOCIAL HISTORY: She has never been a smoker, nor does she take alcohol. PHYSICAL EXAMINATION: HEENT: The patient's pupils are equal, round, and reactive to light. CHEST: Clear to auscultation. HEART: Regular rate and rhythm. ABDOMEN: Soft and nontender. EXTREMITIES : Right index finger has stiffness at the MCP, PIP, and DIP joints. She has remains grossly neurolo gically to the tip, although there is some neural deficits since her cat bite injury. ASSESSMENT/PLAN: Patient is status post right index finger fibrosis. Plan is take the operating oleg m to undergo a manipulation under anesthesia. /[id number]/MODL
[~2018-06-09] MED LIST: BUPIVACAINE 0.25% 30 ML SDV ONE; HYDROCODONE/APAP 5/325 TAB PO PRN; KETOROLAC 30 MG/1 ML SDV IVP ONE; LIDOCAINE 1% 2 ML INJ ID PRN; LIDOCAINE 2% 5 ML SDV ONE; LR 1,000 ML IV ONE; OXYCODONE/APAP 5/325 TAB PO PRN; PROPOFOL 200 MG/20 ML VIAL ONE; fentaNYL 100 MCG/2 ML INJ ONE
--- NOTE | 2018-06-09 07:10 | PDANEPAE ---
ANE Past Medical History - Cardiovascular History Hx Hypertension: No Hx Arrhythmias: No Hx Chest Pain: No Hx Coronary Artery / Peripheral Vascular Disease: No Hx CHF / Valvular Disease: No Hx Palpitations: No - Pulmonary History Hx COPD: No Hx Asthma/Reactive Airway Disease: No Hx Recent Upper Respiratory Infection: No Hx Oxygen in Use at Home: No Hx Sleep Apnea: No Sleep Apnea Screening Result - Last Documented: Negative Pulmonary History Comment: MOLD EXPOSURE YRS AGO. PNEUMONIA X3 - Neurologic History Hx Cerebrovascular Accident: No Hx Seizures: No Hx Dementia: No - Endocrine History Hx Diabetes: No - Renal History Hx Renal Disorders: No - Liver History Hx Hepatic Disorders: No - Neurological & Psychiatric Hx Hx Neurological and Psychiatric Disorders: Yes Neurological / Psychiatric History Comment: MIGRAINES - Cancer History Hx Cancer: No - Congenital Disorder History Hx Congenital Disorders: No - GI History Hx Gastrointestinal Disorders: No - Other Health History Other Health History: SUFFERED CAT BITE TO RT INDEX FINGER 03/2015. HAS SCAB ON RT INDEX FINGER. CHRONIC FATIQUE. USES RX TO REDUCE VAGINAL YEAST GROWTH - Chronic Pain History Chronic Pain: No - Surgical History Prior Surgeries: RT INDEX FINGER I&D ANE Review of Systems Review of Systems: - Exercise capacity METS (RN): 4 METS ANE Patient History - Allergies Allergies/Adverse Reactions: acetaminophen [From Tylenol] Allergy (Verified 06/09/18 06:42) ARRHYTHMIA ciprofloxacin [From Cipro] Allergy (Verified 06/09/18 06:42) ACID TRIP divalproex sodium [From Depakote] Allergy (Verified 06/09/18 06:42) NERVE DAMAGE ibuprofen Allergy (Verified 06/09/18 06:42) TINNITIS ofloxacin [From Floxin] Allergy (Verified 06/09/18 06:42) paraben Allergy (Verified 06/09/18 06:42) topiramate [From Topamax] Allergy (Verified 06/09/18 06:42) CHANGES IN VISUAL COLORS tyramine Allergy (Uncoded 04/05/18 16:37) - Home Medications Home Medications: Cholestryramine 4 g PO BID 04/05/18 [Last Taken 06/08/18 18:00] Itraconazole Nasal [place] 1 spray EACHNARE BID 04/05/18 [Last Taken 06/08/18 21: 00] Magnesium Citrate 510 - 680 mg PO PRN PRN 04/05/18 [Last Taken 06/07/18] Nystatin 1,000,000 unit PO BID 04/05/18 [Last Taken 06/08/18 21:00] Herbals/Supplements -Info Only 1 unit PO DAILY 04/05/18 [Last Taken 06/07/18] Itraconazole [Sporanox 100 mg (*)] 200 mg PO BID 04/05/18 [Last Taken 06/08/18 21:00] - NPO status NPO Since - Liquids (Date): 06/09/18 NPO Since - Liquids (Time): 02:00 NPO Since - Solids (Date): 06/08/18 NPO Since - Solids (Time): 21:30 - Smoking Hx Smoking Status: Never smoked ANE Labs/Vital Signs - Vital Signs Blood Pressure: 146/88 Heart Rate: 70 Respiratory Rate: 16 O2 Sat (%): 93 Height: 167.64 cm Weight: 79.832 kg ANE Physical Exam - Airway Neck exam: FROM Mallampati Score: Class 2 Mouth exam: small mouth opening - Pulmonary Pulmonary: no respiratory distress - Cardiovascular Cardiovascular: regular rate and rhythym - ASA Status ASA Status: II ANE Anesthesia Plan Anesthesia Plan: GA w LMA, GA with mask
--- NOTE | 2018-06-09 07:12 | PDHPUP ---
History & Physical Update H&P update statement: This history and physical update is based on an assessment of the patient which was completed after admission or registration (within 24 hours), but prior to the surgery/procedure. H&P update: H&P reviewed & patient examined, no change in patient's condition since H&P completed
--- NOTE | 2018-06-09 07:40 | POSTOPPROG ---
Post Op Note Date of Operation: 06/09/18 Surgeon: Adriana Mary Anesthesia: IV Sedation Pre-op Diagnosis: r if fibrosis Procedure: r if hemanth Inf/Abcess present in the surg proc area at time of surgery?: No
[2018-06-09 08:17] VITALS: BP 132/85
--- NOTE | 2018-06-09 08:20 | GOP ---
[f rep st] OPERATIVE REPORT DATE OF OPERATION: 06/09/2018 SURGEON: Adriana Mary MD ANESTHESIA: IV sedation. PREOPERATIVE DIAGNOSIS: Right index finger fibrosis. POSTOPERATIVE DIAGNOSIS: Right index finger fibrosis. PROCEDURE PERFORMED: Right index finger manipulation under anesthesia. FINDINGS: INDICATIONS: This is a 57-year-old female, who had been bitten multiple times by a cat. It had to b e washed out. She since developed fibrosis into the index finger. She has had difficulty being able to achieve full extension and full flexion. Wishes to have surgery in order to resolve the problem. DESCRIPTION OF PROCEDURE: Patient brought to the operating room after the right side had been identi fied as the correct side by the patient and physician. Once in the operating room, she was given IV sedation. Once adequately sedated, the finger was able to be manipulated and was able to achieve ove r 120 degrees of flexion into the MCP joint, 105 degrees of flexion across the PIP joint, and 60 degr ees of flexion through the DIP joint. Pictures were taken with the patient's phone for her own edifi cation as well as the edification of physical therapy. We were able to achieve full extension easily once completed. She had 5 cc of Marcaine injected on to either side of the 1st metacarpal in order to numb the finger for as long as possible. She was then allowed to wake up. She was sent to [facility] in good condition. SURGEON: Adriana Mary MD. /[id number]/MODL
== END | disposition home or self-care (01) ==
LOC: FSGY 05:45
PROVIDERS: ATTEND Orthopaedic Surgery
PROC: 0RNWXZZ Release Right Finger Phalangeal Joint, External Approach (ICD-10-PCS; principal; 2018-06-09 07:15)
DX: M24.641 Ankylosis, right hand (principal); S61.25 Open bite of finger without damage to nail; W55.01XS Bitten by cat, sequela; R53.82 Chronic fatigue, unspecified
CPT/HCPCS: J2704; J3010